=== PATIENT | male | born 2000 | race Caucasian/White ===

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

== ENCOUNTER → 2020-05-24 | Outpatient (CLI) | payer SELFPAY ==
[~2020-05-24] MED LIST changes: +ROBITUSSIN DM 105 ML PO; +ZYRTEC10 MG PO
== END | disposition home or self-care (01) ==
LOC: COVID19 11:03
PROVIDERS: ATTEND Internal Medicine
DX: U07.1 COVID-19 (principal)